=== PATIENT | male | born 1940 | race Caucasian/White ===

== ENCOUNTER 2019-06-30 07:41 | Emergency (ER) | payer MEDICARE, OTHER ==
[2019-06-30 08:03] VITALS: O2SAT 99
[2019-06-30] MEDS ORDERED: Augmentin 875-125 Tablet PO ONE (08:05)
[2019-06-30] MEDS ORDERED: Adacel Vial IM ONE ×2 (08:05→08:13)
[2019-06-30] MEDS ORDERED: Catapres 0.1 MG PO ONE (08:06)
--- NOTE | 2019-06-30 08:10 | ERPHSYRPT ---
- History of Present Illness Time Seen by Provider: 06/30/19 07:55 Source: patient Exam Limitations: no limitations Physician History: Patient bitten and clawed by his cat to his left hand one hour prior to coming into the emergency department while taking off his cat's collar. Patient can not recall his last tetanus shot. Patient's cat appears healthy, has been behaving normally and up to date on its vaccinations. Patient's cat can be observed. Occurred: just prior to arrival Method of Injury: other (cat bit him on the dorsum of the left hand, causing bruising and swelling) Quality: constant Severity of Pain-Max: moderate Severity of Pain-Current: mild Extremities Pain Location: hand: left Modifying Factors: Improves With: cold therapy (feels better) Associated Symptoms: No back pain, No chills, No chest discomfort, No chest pain , No dyspnea, No fever, No jaw pain, No nausea, No neck pain, No sweating, No short of breath, No vomiting Allergies/Adverse Reactions: No Known Drug Allergies Allergy (Unverified 09/07/15 08:37) Home Medications: Alendronate Sodium 70 mg [Fosamax 70 MG] 1 tab PO WEEKLY 08/23/14 [History ] Aspirin [Aspirin EC] 81 mg PO BID 08/23/14 [History] Calcium Carb & Citrate/Vit D3 [Calcium + Vitamin D3 Caplet] 1 tab PO BID [History] Isosorbide Mononitrate 30 mg [Imdur 30 MG] 15 mg PO DAILY 08/23/14 [History ] Lisinopril 5 mg [Zestril 5 MG] 10 mg PO DAILY 08/23/14 [History] Lovastatin 40 mg PO DAILY 08/23/14 [History] Albuterol Sulfate [Proair Hfa] 2 puff IH QID 09/07/15 [History] Fluticasone/Salmeterol 115/21 [Advair Hfa 115/21 Common canister*] 06/30/19 [ History] Fluticasone/Salmeterol 115/21* [Advair Hfa 115/21 Mcg Inhaler] 2 puff BID 10/06 [History] Hydrocodone/APAP 5-325 Tab^^^ [[place] 5-325 Tablet^^^] 06/30/19 [History] Tizanidine HCl 1 tab PO DAILY 06/30/19 [History] Triamcinolone 0.025% Cream [Triamcinolone Acetonide] 1 applic TOP BID 06/30/19 [ History] Hx Tetanus, Diphtheria Vaccination/Date Given: Yes (UNKNOWN) Hx Influenza Vaccination/Date Given: Yes Hx Pneumococcal Vaccination/Date Given: Yes (UP TO DATE) - Review of Systems Constitutional: No Fever, No Chills Eyes: No Eye Pain, No Photophobia, No Vision Changes Ears, Nose, & Throat: No Nose Congestion, No Mouth Swelling, No Throat Swelling , No Stridor Respiratory: No Cough, No Dyspnea Cardiac: No Chest Pain, No Edema, No Syncope Abdominal/Gastrointestinal: No Abdominal Pain, No Nausea, No Vomiting, No Diarrhea Genitourinary Symptoms: No Dysuria, No Flank Pain Musculoskeletal: No Back Pain, No Neck Pain Skin: No Rash Neurological: No Dizziness, No Focal Weakness, No Sensory Changes Psychological: No Symptoms Endocrine: No Symptoms Hematologic/Lymphatic: No Easy Bleeding, No Easy Bruising All Other Systems: Reviewed and Negative - Past Medical History Pertinent Past Medical History: Yes Neurological History: No Pertinent History ENT History: Other Cardiac History: Coronary Artery Disease, High Cholesterol, Hypertension, Myocardial Infarction ([place]) Respiratory History: COPD, Emphysema Endocrine Medical History: Diabetes Type II Musculoskeletal History: Arthritis GI Medical History: No Pertinent History History: Other Psycho-Social History: No Pertinent History Male Reproductive Disorders: Prostate Problems - Past Surgical History Past Surgical History: Yes Neuro Surgical History: No Pertinent History Cardiac: Cardiac Catheterization, Cardiac Stent Respiratory: No Pertinent History Gastrointestinal: Appendectomy Musculoskeletal: No Pertinent History Male Surgical History: Prostate Surgery Other Surgical History: BLADDER RECONSTRUCITON - Social History Smoking Status: Former smoker Exposure to second hand smoke: No Drug Use: none Patient Lives Alone: No - Nursing Vital Signs Nursing Vital Signs: Initial Vital Signs Temperature 97.3 F 06/30/19 07:47 Pulse Rate 83 06/30/19 07:47 Respiratory Rate 20 06/30/19 07:47 Blood Pressure 227/82 06/30/19 07:47 O2 Sat by Pulse Oximetry 99 06/30/19 07:47 Pain Scale Pain Intensity 5 - Physical Exam General Appearance: no apparent distress, alert Eyes, Ears, Nose, Throat Exam: moist mucous membranes Neck Exam: non-tender, supple Cardiovascular/Respiratory Exam: chest non-tender, normal breath sounds, regular rate/rhythm, no respiratory distress Abdominal Exam: non-tender, No guarding, No tenderness Back Exam: normal inspection, No CVA tenderness, No vertebral tenderness Shoulder Exam: normal inspection, non-tender, no evidence of injury, normal ROM Elbow/Forearm Exam: normal inspection, non-tender, no evidence of injury, normal ROM Wrist Exam: normal inspection, non-tender, no evidence of injury, normal ROM Hand Exam: normal ROM, abrasions (left hand and forearm), ecchymosis (dorsum of left hand), swelling (dorsum of left hand next to a 2mm puncture wound), No deformity Neuro/Tendon Exam: normal sensation, normal motor functions Mental Status Exam: alert, oriented x 3, cooperative Skin Exam: normal color, warm, dry - Radiology Exams Left Hand X-ray Interpretation: Reviewed by me, No Fracture, Other (positive dorsal soft tissue swelling) Ordered Tests: Active Orders 24 hr Category Date Time Status HAND (MINIMUM 3 VIEWS) Stat Exams 06/30/19 08:17 Completed Medication Summary Discontinued Medications Generic Name Dose Route Start Last Admin Trade Name Freq PRN Reason Stop Dose Admin Amoxicillin/Clavulanate Potassium 875 mg 06/30/19 08:05 06/30/19 08:16 Augmentin 875-125 Tablet PO 06/30/19 08:06 875 mg STAT ONE Administration Amoxicillin/Clavulanate Potassium Confirm 06/30/19 08:12 Augmentin 875-125 Tablet Administered 06/30/19 08:13 Dose 875 mg .ROUTE .STK-MED ONE Clonidine 0.1 mg 06/30/19 08:06 06/30/19 08:16 Catapres 0.1 Mg PO 06/30/19 08:07 0.1 mg STAT ONE Administration Clonidine Confirm 06/30/19 08:12 Catapres 0.1 Mg Administered 06/30/19 08:13 Dose 0.1 mg .ROUTE .STK-MED ONE Diphtheria/Tetanus/Acell Pertussis 0.5 ml 06/30/19 08:05 06/30/19 08:15 Adacel Vial IM 06/30/19 08:06 0.5 ml .ONCE ONE Administration Diphtheria/Tetanus/Acell Pertussis Confirm 06/30/19 08:13 Adacel Vial Administered 06/30/19 08:14 Dose 0.5 ml IM .STK-MED ONE - Progress Progress: unchanged (no loss of function of the left hand), improved (in regards to blood pressure) Progress Note: 06/30/19 09:19 Patient has no indication for inpatient admission at this time for IV antibiotics due to coming in shortly after the bite and antibiotic started. He' ll be continued on Augmentin for one week and patient's continue taking his blood pressure medications. His tetanus was boosted here in the emergency department and patient does not need any rabies interlobular or vaccine at this time as that appeared well, is up-to-date vaccination for patient's history, and can be observed for this upcoming week. Animal bite forms sent to the [facility] office per protocol. 06/30/19 09:21 Blood pressure improved after time and medication given. Counseled pt/family regarding: diagnosis, need for follow-up, rad results - Departure Departure Disposition: Home Clinical Impression: Open wound of left hand due to cat bite, Contusion of left hand, initial encounter Hypertension Qualifiers: Hypertension type: essential hypertension Qualified Code(s): I10 - Essential ( primary) hypertension Condition: Good Critical Care Time: No Referrals: TREVOR ESCOBAR MD [Primary Care Provider] - 07/01/19 Instructions: Animal Bites (DC), Diphtheria and Tetanus Toxoids, and Acellular Pertussis Vaccine, High Blood Pressure (DC) Additional Instructions: it is very important to followup with your physician on 07/01/2019 to check the response to therapy and make sure the cat bite has not worsened. Return immediately to the emergency department if any worsening swelling, loss of function to your left hand, worsening pain, any fever, new erythema, or reddish streaking up the arm occurs for immediate reevaluation in the emergency department. Prescriptions: Amoxicillin/Potassium Clav [Augmentin 875-125 Tablet] 1 each PO BID #14 tablet
[2019-06-30] MEDS ORDERED: Catapres 0.1 MG ONE (08:12)
[2019-06-30] MEDS ORDERED: Augmentin 875-125 Tablet ONE (08:12)
[2019-06-30 09:00] VITALS: BP 153/62; PULSE 75
--- NOTE | 2019-06-30 09:01 | XRAY ---
Indication: Swelling and bruising following cat bite. Comparison: None 3 views of the left hand demonstrates soft tissue swelling and subcutaneous emphysema overlying 4th/5th metacarpals presumed inflammatory/infectious. Elsewhere osteopenia, mild degenerative changes all IP joints, and bone cyst base 1st metacarpal. Remaining hand unremarkable.
== END 2019-06-30 09:32 | disposition home or self-care (01) ==
LOC: ED 07:41
DX: S61.452A Open bite of left hand, initial encounter (principal); W55.01XA Bitten by cat, initial encounter; I10 Essential (primary) hypertension
CPT/HCPCS: 73130; 90471; 90715; 99284; A9270-GY

== ENCOUNTER 2019-08-16 11:10 | Observation (INO) | payer MEDICARE, OTHER ==
[2019-08-16] MEDS ORDERED: FEVERALL 650 MG PR PRN (13:08)
[2019-08-16] MEDS ORDERED: NovoLOG Insulin SQ PRN (13:08)
[2019-08-16] MEDS ORDERED: Sodium Chloride 0.9% 1000 ML 1,000 ML IV STA (13:08)
[2019-08-16 13:29] LABS: BASOPHIL % 0.3 % (0.0-0.4); Basophil (Absolute #) 0.02 (0-0.4); Eosinophil % 2.8 % (0.00-5.0); Eosinophil (Absolute #) 0.19 (0-0.5); Hematocrit 47.1 % (42-50); Hemoglobin 16.1 gm/dl (12.5-18.0); Lymphocytes % 22.1 % (24.0-44.0); Mean Cell Volume 91.1 fl (78-100); Mean Corpuscular Hemoglobin 31.1 pg (26-32); Mean Corpuscular Hgb Concent. 34.2 g/dl (32-36); Mean Platelet Volume 11.1 fl (6-9.5); Monocyte (Absolute #) 0.67 (0.0-1.3); Monocytes % 9.9 % (0.0-12.0); Neutrophil % 64.9 % (36.0-66.0); Platelet Count 251 K/mm3 (150-450); Red Blood Count 5.17 M/mm3 (4.1-5.6); Red Cell Distribution Width 14.2 % (11.5-14.0); White Blood Count 6.8 K/mm3 (4.0-10.5)
[2019-08-16 13:54] LABS: ALBUMIN 4.1 g/dL (3.5-5.0); ALKALINE PHOSPHATASE 49 U/L (38-126); BLOOD UREA NITROGEN 24 mg/dL (9-20); CHLORIDE 105 mmol/L (98-107); Calcium 9.7 mg/dL (8.4-10.2); Carbon Dioxide 28 mmol/L (22-30); Creatinine 1 1.02 mg/dL (0.66-1.25); Glucose 122 mg/dL (74-106); NT PRO BNP 1100 pg/mL (0-1800); Potassium 4.9 mmol/L (3.5-5.1); SGOT/AST 26 U/L (17-59); SGPT/ALT 16 U/L (0-50); SODIUM 142 mmol/L (137-145); Total Protein 7.2 g/dL (6.3-8.2)
[2019-08-16] MEDS: ROCEPHIN 1 Gm-D5w 50 ml Bag** 1 G/50 ML IVPB IV SCH (13:58)
[2019-08-16] MEDS: Zithromax 500 MG/ 250 ML NaCl Premix 500 MG/250 ML IVPB IV SCH (13:59)
[2019-08-16] MEDS ORDERED: APAP PO SCH (14:00)
[2019-08-16] MEDS ORDERED: HYDROCODONE PO SCH (14:00)
--- NOTE | 2019-08-16 17:07 | XRAY ---
Indication: Weakness and weight loss. History of prostate tumor. Multiple contiguous axial images obtained through the chest without contrast as ordered. Comparison: None Lungs are hyperinflated with minimal scattered fibrosis/scarring, mild bilateral dependent atelectasis, right apical fibrosis/scarring, 1 cm left apical calcified granuloma, and 1.2 cm right posterior gutter noncalcified nodule. No infiltrate or effusion. Heart is not enlarged. Aorta is minimally arteriosclerotic without aneurysmal dilatation. Tiny right perihilar calcified nodes. No pathologic mediastinal lymphadenopathy. Distal esophagus demonstrates circumferential wall thickening, possible esophagitis. Bony thorax demonstrates age-related osteopenia and moderate degenerative changes of both shoulders. There are flowing osteophytes of the spine favoring diffuse idiopathic skeletal hyperostosis (also known as DISH). CT abdomen/pelvis reported separately. Impression: 1. Indeterminant 1.2 cm right posterior gutter noncalcified nodule. Size and location I believe precludes PET CT evaluation. Comparison studies would be of benefit if performed elsewhere. If not, recommend follow-up per Fleischner guidelines. 2. Mild scattered fibrosis/scarring and evidence for old granulomatous disease. 3. Distal esophageal circumferential wall thickening. Rule out esophagitis. 4. Osteopenia and DISH. CTDI 16.22
--- NOTE | 2019-08-16 17:13 | XRAY ---
Indication: Weakness and weight loss. History of prostate tumor. Multiple contiguous axial images obtained through the abdomen and pelvis using oral contrast only as ordered. Comparison: June 06, 2011. CT chest reported separately. Study degraded by respiration artifact throughout the exam. Contrasted stomach and bowel loops appear nonobstructed. There is mild diffuse scattered colonic fecal debris throughout including rectum. Mild sigmoid diverticulosis. Previous appendectomy and prostatectomy. No free fluid/air. Interval enlarging 3.3 cm left renal cyst. Stable splenic calcified granulomas. Remaining liver, gallbladder, pancreas, spleen, adrenal glands, kidneys, ureters, and bladder appear unremarkable for noncontrast exam. Minimal scattered aortoiliac calcifications without AAA. Osseous structures demonstrate age-related osteopenia and moderate/advanced degenerative changes throughout the lumbar spine. No suspicious bony lesions. Impression: 1. Respiration artifact. 2. Again mild diffuse fecal stasis without obstruction. 3. Incidental sigmoid diverticulosis, left renal cyst, and evidence for old granulomatous disease. 4. Osteopenia and multilevel degenerative spondylosis. CTDI 16.22
--- NOTE | 2019-08-16 17:19 | XRAY ---
Indication: Weakness and weight loss. Comparison: September 07, 2015. PA/lateral chest again hyperinflated with tiny left apical calcified granuloma. No focal infiltrate, consolidation, or large effusion. Heart is not enlarged. Bony thorax intact again with osteopenia, degenerative changes, and diffuse idiopathic skeletal hyperostosis. Impression: Nonacute hyperinflated chest with chronic features. See CT chest study of the same day.
[2019-08-16] MEDS: NORCO 5/325 MG PO SCH (17:36)
[2019-08-16] MEDS: Sodium Chloride 0.9% 1000 ML 1,000 ML IV SCH (17:36)
[2019-08-16] MEDS ORDERED: Advair Hfa 115/21 Common canister IH SCH (19:00)
[2019-08-16] MEDS: Lopressor 50 MG PO SCH (21:41)
[2019-08-16] MEDS: ECOTRIN 81 MG PO SCH (21:41)
[2019-08-16] MEDS: ZOCOR 20MG PO SCH (21:41)
[2019-08-16] MEDS ORDERED: NON-FORMULARY ITEM (Lovastatin [Lovastatin] 40 MG) PO SCH (22:00)
[2019-08-16 23:25] LABS: Appearance CLEAR (CLEAR); Bilirubin NEGATIVE (NEGATIVE); Blood NEGATIVE Ery/ul (0-5); Glucose NEGATIVE (NEGATIVE); Ketones NEGATIVE (NEGATIVE); Leukocyte Esterase NEGATIVE (NEGATIVE); Nitrite NEGATIVE (NEGATIVE); Protein,Urine Dip NEGATIVE (Negative); Urobilinogen NEGATIVE mg/dL (0-1)
[2019-08-17] MEDS: NORCO 5/325 MG PO SCH ×5 (00:50→23:26)
[2019-08-17] MEDS: Sodium Chloride 0.9% 1000 ML 1,000 ML IV SCH ×2 (03:51→16:49)
[2019-08-17] MEDS ORDERED: Fosamax 70 MG PO SCH (06:00)
[2019-08-17] MEDS: Calcium 500MG W/Vit D Tablet PO SCH (09:23)
[2019-08-17] MEDS: ROCEPHIN 1 Gm-D5w 50 ml Bag** 1 G/50 ML IVPB IV SCH (09:23)
[2019-08-17] MEDS: ECOTRIN 81 MG PO SCH ×2 (09:24→22:50)
[2019-08-17] MEDS: Imdur 30 MG PO SCH (09:24)
[2019-08-17] MEDS: Zestril 10 MG PO SCH (09:24)
[2019-08-17] MEDS: Zithromax 500 MG/ 250 ML NaCl Premix 500 MG/250 ML IVPB IV SCH (09:59)
[2019-08-17] MEDS ORDERED: VIT D3 PO SCH (10:00)
[2019-08-17] MEDS ORDERED: CITRATE PO SCH (10:00)
[2019-08-17] MEDS ORDERED: CALCIUM CARB PO SCH (10:00)
[2019-08-17] MEDS ORDERED: Zestril 5 MG PO SCH (10:00)
[2019-08-17] MEDS ORDERED: NON-FORMULARY ITEM (Fluticasone/Umeclidin/Vilanter [Trelegy Ellipta 100-62.5-25] 1 EACH) IH SCH (10:00)
[2019-08-17] MEDS: PATIENT OWN MEDICATION IH SCH ×2 (12:12→12:13)
--- NOTE | 2019-08-17 12:26 | PCM.NOTE ---
Date and Time: 08/17/19 1223 Subjective Assessment: doing ok - Review of Systems Constitutional: No Fever, No Chills Eyes: No Symptoms Ears, Nose, & Throat: No Symptoms Respiratory: No Cough, No Short Of Breath Cardiac: No Chest Pain, No Edema, No Syncope Abdominal/Gastrointestinal: No Abdominal Pain, No Nausea, No Vomiting, No Diarrhea Genitourinary Symptoms: No Dysuria Musculoskeletal: No Back Pain, No Neck Pain Skin: No Rash Neurological: No Dizziness, No Focal Weakness, No Sensory Changes Psychological: No Symptoms Endocrine: No Symptoms Hematologic/Lymphatic: No Symptoms Immunological/Allergic: No Symptoms Objective Exam General Appearance: no apparent distress, alert Neurologic Exam: alert, oriented x 3, cooperative, normal mood/affect, nml cerebellar function, sensation nml, No motor deficits Skin Exam: normal color, warm, dry Wound Assessment: Skin/Wound Assessment Wound/Incision Assessment Start: 08/16/19 12: 30 Text: Status: Active Freq: Q6H Protocol: Document 08/17/19 12:00 ESTEE (Rec: 08/17/19 12:20 ESTEE [id number]) Wound/Incision Assessment Left Wound Assessment Shift Assessment Wound Type SHINGLES Surrounding Tissue Purple Comment DRY AND HEALING, NO DRAINAGE NOTED Eye Exam: PERRL, EOMI, eyes nml inspection Ears, Nose, Throat Exam: normal ENT inspection, pharynx normal, moist mucous membranes Neck Exam: normal inspection, non-tender, supple, full range of motion Respiratory Exam: normal breath sounds, lungs clear, No respiratory distress Cardiovascular Exam: regular rate/rhythm, normal heart sounds Gastrointestinal/Abdomen Exam: soft, No tenderness, No mass Extremity Exam: normal inspection, normal range of motion Back Exam: normal inspection, normal range of motion, No CVA tenderness, No vertebral tenderness Male Genitalia Exam: deferred Rectal Exam: deferred OBJECTIVE DATA Vital Signs: Vital Signs - 24 hr Temp Pulse Resp BP Pulse Ox 08/17/19 12:00 97.7 F 76 18 115/55 97 08/17/19 08:51 67 16 97 08/17/19 07:00 97.6 F 58 L 17 166/72 98 08/17/19 03:00 97.9 F 72 18 160/70 98 08/16/19 23:20 98.2 F 75 75 H 172/70 97 08/16/19 19:50 76 20 98 10/29/19 19:00 97.9 F 74 20 160/72 98 08/16/19 15:21 98.6 F 74 18 195/80 94 L 08/16/19 13:42 98 Pain Assessment - Last Documented Pain Intensity 5 Pain Scale Used 0-10 Pain Scale Intake and Output: Intake & Output 08/15/19 08/16/19 08/17/19 08/18/19 11:59 11:59 11:59 11:59 Intake Total 3179 Output Total 3275 Balance -96 Weight 64.5 kg Lab Results: Accuchecks Accucheck Value: 101 Accucheck Value: 104 Accucheck Value: 120 Lab Results-Last 24 Hours 08/16/19 08/16/19 08/16/19 Range/Units 12:38 12:38 13:45 WBC 6.8 (4.0-10.5) K/mm3 RBC 5.17 (4.1-5.6) M/mm3 Hgb 16.1 (12.5-18.0) gm/dl Hct 47.1 (42-50) % MCV 91.1 (78-100) fl MCH 31.1 (26-32) pg MCHC 34.2 (32-36) g/dl RDW 14.2 H (11.5-14.0) % Plt Count 251 (150-450) K/mm3 MPV 11.1 H (6-9.5) fl Gran % 64.9 (36.0-66.0) % Eos # (Auto) 0.19 (0-0.5) Absolute Lymphs (auto) 1.50 (1.0-4.6) Absolute Monos (auto) 0.67 (0.0-1.3) Lymphocytes % 22.1 L (24.0-44.0) % Monocytes % 9.9 (0.0-12.0) % Eosinophils % 2.8 (0.00-5.0) % Basophils % 0.3 (0.0-0.4) % Absolute Granulocytes 4.40 (1.4-6.9) Basophils # 0.02 (0-0.4) Sodium 142 (137-145) mmol/L Potassium 4.9 (3.5-5.1) mmol/L Chloride 105 (98-107) mmol/L Carbon Dioxide 28 (22-30) mmol/L Anion Gap 14.0 (5-15) MEQ/L BUN 24 H (9-20) mg/dL Creatinine 1.02 (0.66-1.25) mg/dL Estimated GFR > 60.0 ML/MIN Glucose 122 H (74-106) mg/dL Hemoglobin A1c 5.23 (4.5-6.0) % Calcium 9.7 (8.4-10.2) mg/dL Total Bilirubin 0.50 (0.2-1.3) mg/dL AST 26 (17-59) U/L ALT 16 (0-50) U/L Alkaline Phosphatase 49 (38-126) U/L NT-Pro-B Natriuret Pep 1100 (0-1800) pg/mL Serum Total Protein 7.2 (6.3-8.2) g/dL Albumin 4.1 (3.5-5.0) g/dL Urine Color (YELLOW) Urine Appearance (CLEAR) Urine pH (5-6) Ur Specific [place] (1.005-1.025) Urine Protein (Negative) Urine Ketones (NEGATIVE) Urine Blood (0-5) Abilio/ul Urine Nitrite (NEGATIVE) Urine Bilirubin (NEGATIVE) Urine Urobilinogen (0-1) mg/dL Ur Leukocyte Esterase (NEGATIVE) Urine WBC (Auto) (0-5) /HPF Urine RBC (Auto) (0-2) /HPF U Epithel Cells (Auto) (FEW) /HPF Urine Bacteria (Auto) (NEGATIVE) /HPF Urine Culture Reflexed (NO) Urine Glucose (NEGATIVE) mg/dL 08/16/19 Range/Units 23:21 WBC (4.0-10.5) K/mm3 RBC (4.1-5.6) M/mm3 Hgb (12.5-18.0) gm/dl Hct (42-50) % MCV (78-100) fl MCH (26-32) pg MCHC (32-36) g/dl RDW (11.5-14.0) % Plt Count (150-450) K/mm3 MPV (6-9.5) fl Gran % (36.0-66.0) % Eos # (Auto) (0-0.5) Absolute Lymphs (auto) (1.0-4.6) Absolute Monos (auto) (0.0-1.3) Lymphocytes % (24.0-44.0) % Monocytes % (0.0-12.0) % Eosinophils % (0.00-5.0) % Basophils % (0.0-0.4) % Absolute Granulocytes (1.4-6.9) Basophils # (0-0.4) Sodium (137-145) mmol/L Potassium (3.5-5.1) mmol/L Chloride (98-107) mmol/L Carbon Dioxide (22-30) mmol/L Anion Gap (5-15) MEQ/L BUN (9-20) mg/dL Creatinine (0.66-1.25) mg/dL Estimated GFR ML/MIN Glucose (74-106) mg/dL Hemoglobin A1c (4.5-6.0) % Calcium (8.4-10.2) mg/dL Total Bilirubin (0.2-1.3) mg/dL AST (17-59) U/L ALT (0-50) U/L Alkaline Phosphatase (38-126) U/L NT-Pro-B Natriuret Pep (0-1800) pg/mL Serum Total Protein (6.3-8.2) g/dL Albumin (3.5-5.0) g/dL Urine Color STRAW (YELLOW) Urine Appearance CLEAR (CLEAR) Urine pH 8.0 (5-6) Ur Specific [place] 1.010 (1.005-1.025) Urine Protein NEGATIVE (Negative) Urine Ketones NEGATIVE (NEGATIVE) Urine Blood NEGATIVE (0-5) Abilio/ul Urine Nitrite NEGATIVE (NEGATIVE) Urine Bilirubin NEGATIVE (NEGATIVE) Urine Urobilinogen NEGATIVE (0-1) mg/dL Ur Leukocyte Esterase NEGATIVE (NEGATIVE) Urine WBC (Auto) NONE (0-5) /HPF Urine RBC (Auto) NONE (0-2) /HPF U Epithel Cells (Auto) NONE (FEW) /HPF Urine Bacteria (Auto) NONE (NEGATIVE) /HPF Urine Culture Reflexed NO (NO) Urine Glucose NEGATIVE (NEGATIVE) mg/dL Radiology Exams: Radiology Procedures Category Date Time Status ABDOMEN AND PELVIS W/0 CONTRAS [CT] Urgent Exams 08/16/19 13:30 Completed CHEST 2 VIEWS (PA AND LAT) Stat Exams 08/16/19 16:50 Completed CHEST WITHOUT CONTRAST [CT] Routine Exams 08/16/19 13:30 Completed Multi-Disciplinary Progress Notes: Multi-Disciplinary Progress Notes 08/17/19 12:13 Respiratory Note by Pan,Carlie Patient stated that his friend was bringing his Albuterol and Trelegy inhalers this morning. I spoke with patient this morning at 7:45 and he said that his friend would be bringing them in after 8:00. I asked him to let me know when they arrived and I would come down and give them. I had not heard from him so I checked back and as of 11:55, he has not brought them in. Offered patient to use our albuterol inhaler and he said he does not need at this time. Initialized on 08/17/19 12:13 - END OF NOTE 08/16/19 17:30 Physical Therapy Note by Mercy Bob P.Zan KIRK THIS PM AND PT. WAS IN RADIOLOGY FOR CT. WILL DALIA TOMORROW 08/17. 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
[2019-08-17] MEDS: Lopressor 50 MG PO SCH (22:50)
[2019-08-17] MEDS: ZOCOR 20MG PO SCH (22:50)
[2019-08-18] MEDS: Sodium Chloride 0.9% 1000 ML 1,000 ML IV SCH (02:31)
[2019-08-18] MEDS: NORCO 5/325 MG PO SCH ×2 (06:00→12:10)
[2019-08-18] MEDS: ROCEPHIN 1 Gm-D5w 50 ml Bag** 1 G/50 ML IVPB IV SCH (09:07)
[2019-08-18] MEDS: Imdur 30 MG PO SCH (09:09)
[2019-08-18] MEDS: Calcium 500MG W/Vit D Tablet PO SCH (09:09)
[2019-08-18] MEDS: ECOTRIN 81 MG PO SCH (09:10)
[2019-08-18] MEDS: Zestril 10 MG PO SCH (09:10)
[2019-08-18] MEDS: Zithromax 500 MG/ 250 ML NaCl Premix 500 MG/250 ML IVPB IV SCH (09:45)
[2019-08-18] MEDS: PATIENT OWN MEDICATION IH SCH ×2 (10:57)
[2019-08-18 11:01] VITALS: PULSE 65
[2019-08-18 12:04] VITALS: BP 158/67; O2SAT 99
--- NOTE | 2019-08-18 12:52 | PCM.DS ---
Discharge Summary Date of Admission: 08/16/19 11:12 Admitting Physician: TREVOR ESCOBAR Primary Care Provider: TREVOR ESCOBAR Allergies Allergies garlic Allergy (Verified 08/16/19 11:54) [facility] Hospital Summary - Hospital Course Hospital Course: Chief Complaint Diagnosis wt loss, dizziness, disoriented Allergies Allergy/AdvReac Type Severity Reaction Status Date / Time garlic Allergy Hives Verified 08/16/19 11:54 Vital Signs (Last 24 hours) Temp Pulse Resp BP Pulse Ox 08/18/19 12:00 98.3 F 65 18 158/67 99 08/18/19 10:59 65 20 98 08/18/19 07:11 97.9 F 66 18 140/65 98 08/18/19 04:00 97.8 F 94 H 20 166/65 97 08/17/19 23:28 98.5 F 69 14 180/75 98 08/17/19 20:18 88 20 94 L 08/17/19 20:04 98.0 F 75 20 194/76 98 08/17/19 16:00 97.5 F 77 18 148/64 98 Home Medications Medication Instructions Recorded Confirmed Last Taken Type Fluticasone/Umeclidin/Vilanter 1 each IH DAILY 08/16/19 08/16/19 Unknown History [Trelegy Ellipta 100-62.5-25] Metoprolol Tartrate 50 mg 50 mg PO QHS 08/16/19 08/16/19 Unknown History [Lopressor 50 MG] Current Medications Generic Name Dose Route Start Last Admin Trade Name Freq PRN Reason Stop Dose Admin Acetaminophen 650 mg 08/16/19 13:08 Feverall 650 Mg VT 09/15/19 13:07 Q4H PRN PRN PAIN AND/OR FEVER Hydrocodone Bitart/Acetaminophen 1 tab 08/16/19 18:00 08/18/19 12:10 Orr 5/325 Mg PO 08/21/19 17:59 1 tab Q6HT ALIX Administration Alendronate Sodium 70 mg 08/17/19 06:00 08/17/19 06:07 Fosamax 70 Mg PO 09/16/19 05:59 70 mg We@0600 ALIX Administration Aspirin 81 mg 08/16/19 22:00 08/18/19 09:10 Ecotrin 81 Mg PO 09/15/19 21:59 81 mg BID ALIX Administration Calcium Carbonate 1 tab 08/17/19 10:00 08/18/19 09:09 Calcium 500mg W/Vit D Tablet PO 09/16/19 09:59 1 tab DAILY ALIX Administration Azithromycin 500 mg in 250 mls @ 250 mls/hr 08/16/19 14:00 08/18/19 09:45 Zithromax 500 Mg/ 250 Ml Nacl Premix IV 09/15/19 13:59 250 mls/hr Q24H10 ALIX Administration Ceftriaxone Sodium/Dextrose 1 g in 50 mls @ 100 mls/hr 08/16/19 13:45 09:07 Rocephin 1 Gm-D5w 50 Ml Bag IV 09/15/19 13:44 100 mls/hr Q24H10 ALIX Administration Sodium Chloride 1,000 mls @ 100 mls/hr 08/16/19 13:15 08/18/19 02:31 Sodium Chloride 0.9% 1000 Ml IV 09/15/19 13:14 100 mls/hr .Q10H ALIX Administration Insulin Aspart 0 unit 08/16/19 13:08 Novolog Insulin SQ 09/15/19 13:07 UD PRN Accuchek Isosorbide Mononitrate 15 mg 08/17/19 10:00 08/18/19 09:09 Imdur 30 Mg PO 09/16/19 09:59 15 mg DAILY ALIX Administration Lisinopril 10 mg 08/17/19 10:00 08/18/19 09:10 Zestril 10 Mg PO 09/16/19 09:59 10 mg DAILY ALIX Administration Metoprolol Tartrate 50 mg 08/16/19 22:00 08/17/19 22:50 Lopressor 50 Mg PO 09/15/19 21:59 50 mg QHS ALIX Administration Patient Own Med ( 0 each 08/17/19 07:00 08/18/19 10:57 Trelegy) 09/16/19 06:59 Not Given 0700 ALIX Patient Own Med ( 0 each 08/17/19 07:00 08/18/19 10:57 Albuterol) 09/16/19 06:59 Not Given BIDRT ALIX Simvastatin 20 mg 08/16/19 22:00 08/17/19 22:50 Zocor 20mg PO 09/15/19 21:59 20 mg HS ALIX Administration Discontinued Medications Generic Name Dose Route Start Last Admin Trade Name Junior PRN Reason Stop Dose Admin Sodium Chloride 1,000 mls @ 999 mls/hr 08/16/19 13:08 08/16/19 14:38 Sodium Chloride 0.9% 1000 Ml IV 08/16/19 14:08 999 mls/hr .Q1H1M STA Administration Fluticasone/Salmeterol 2 puff 08/16/19 19:00 Advair Hfa 115/21 Common Canister* IH 09/15/19 18:59 BIDRT ALIX Intake & Output (Last 24 hours) 08/16/19 08/17/19 08/18/19 08/19/19 11:59 11:59 11:59 11:59 Intake Total 3179 3762 Output Total 3275 3700 Balance -96 62 Weight 64.5 kg Microbiology Results (Last 24 hours) 08/16/19 13:40 Blood Blood Culture Gram Stain - Pending 08/16/19 13:40 Blood Blood Culture - Preliminary NO GROWTH TO DATE 08/16/19 13:40 Blood Blood Culture Gram Stain - Pending 08/16/19 13:40 Blood Blood Culture - Preliminary NO GROWTH TO DATE Orders (Last 24 hours) Category Date Time Status Ambulate Patient TID Care 08/17/19 13:42 Active Patient Care Notes (Last 24 hours) 08/17/19 13:43 Nursing Note by Mercy Vazquez VERBAL ORDER TO AMBULATE PATIENT. Initialized on 08/17/19 13:43 - END OF NOTE - Vitals & Intake/Output Vital Signs: Vital Signs Temperature 98.3 F 08/18/19 12:00 Pulse Rate 65 08/18/19 12:00 Respiratory Rate 18 08/18/19 12:00 Blood Pressure 158/67 08/18/19 12:00 O2 Sat by Pulse Oximetry 99 08/18/19 12:00 Intake & Output: Intake & Output 08/16/19 08/17/19 08/18/19 08/19/19 11:59 11:59 11:59 11:59 Intake Total 3179 3762 Output Total 3275 3700 Balance -96 62 Weight 64.5 kg - Lab Result Diagrams: 08/16/19 12:38 08/16/19 12:38 Lab Results-Last 24 Hrs: Accuchecks Accucheck Value: 106 Accucheck Value: 117 Accucheck Value: 88 Micro Results-Entire Visit: Microbiology 08/16/19 13:40 Blood Culture - Preliminary Blood NO GROWTH TO DATE 08/16/19 13:40 Blood Culture - Preliminary Blood NO GROWTH TO DATE Accuchecks Accucheck Value: 106 Accucheck Value: 117 Accucheck Value: 88 - Radiology Exams Ordered Rad Exams-Entire Visit: Radiology Procedures Category Date Time Status ABDOMEN AND PELVIS W/0 CONTRAS [CT] Urgent Exams 08/16/19 13:30 Completed CHEST 2 VIEWS (PA AND LAT) Stat Exams 08/16/19 16:50 Completed CHEST WITHOUT CONTRAST [CT] Routine Exams 08/16/19 13:30 Completed - Procedures and Test Procedures and Tests throughout Hospitalization: Therapy Orders & Screens 08/16/19 13:08 OT Eval and Treat (MD Order) ROUTINE Comment: Consulting Provider: Physician Instructions: Reason For Exam: Diagnosis: wt loss, dizziness, disoriented EKG STAT Comment: Diagnosis: wt loss, dizziness, disoriented Oxygen Nasal Cannula 2 lpm Comment: Diagnosis: wt loss, dizziness, disoriented Respiratory Therapy Consult ROUTINE Comment: Reason For Exam: Diagnosis: wt loss, dizziness, disoriented 08/16/19 13:13 PT Eval & Treat (MD Order) ROUTINE Reason for Eval:: debility Diagnosis: wt loss, dizziness, disoriented 08/16/19 19:00 Respiratory Therapy Assessment DAILY Comment: Diagnosis: wt loss, dizziness, disoriented 08/17/19 08:12 EKG ROUTINE Comment: Diagnosis: wt loss, dizziness, disoriented Discharge Exam General Appearance: no apparent distress, alert Neurologic Exam: alert, oriented x 3, cooperative, normal mood/affect, nml cerebellar function, sensation nml, No motor deficits Eye Exam: PERRL, EOMI, eyes nml inspection Ears, Nose, Throat Exam: normal ENT inspection, pharynx normal, moist mucous membranes Neck Exam: normal inspection, non-tender, supple, full range of motion Respiratory Exam: normal breath sounds, lungs clear, No respiratory distress Cardiovascular Exam: regular rate/rhythm, normal heart sounds Gastrointestinal/Abdomen Exam: soft, No tenderness, No mass Male Genitalia Exam: deferred Rectal Exam: deferred Back Exam: normal inspection, normal range of motion, No CVA tenderness, No vertebral tenderness Extremity Exam: normal inspection, normal range of motion Skin Exam: normal color, warm, dry Wound Assessment: Skin/Wound Assessment Wound/Incision Assessment Start: 08/16/19 12: 30 Text: Status: Active Freq: Q6H Protocol: Document 08/18/19 06:00 MG (Rec: 08/18/19 07:00 MG [id number]) Wound/Incision Assessment Left Wound Assessment Shift Assessment Wound Type SHINGLES Surrounding Tissue Purple Comment DRY AND HEALING, NO DRAINAGE NOTED. 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 Current Visit: Yes Status: Acute Code(s): I13.10 - HYP HRT & CHR KDNY DIS W/ O HRT FAIL, W STG 1-4/UNSP CHR KDNY; N18.2 - CHRONIC KIDNEY DISEASE, STAGE 2 ( MILD) (2) Weight loss Current Visit: Yes Status: Chronic (3) Type 2 diabetes mellitus Current Visit: Yes Status: Acute (4) COPD (chronic obstructive pulmonary disease) Current Visit: Yes Status: Chronic - Discharge Discharge Date: 08/18/19 Disposition: Home, Self-Care Condition: Stable Prescriptions: Continue Lovastatin 40 mg PO QHS Aspirin [Aspirin EC] 81 mg PO BID Lisinopril 5 mg [Zestril 5 MG] 10 mg PO DAILY Isosorbide Mononitrate 30 mg [Imdur 30 MG] 15 mg PO DAILY Calcium Carb & Citrate/Vit D3 [Calcium + Vitamin D3 Caplet] 1 tab PO DAILY Alendronate Sodium 70 mg [Fosamax 70 MG] 1 tab PO WEEKLY Hydrocodone/APAP 5-325 Tab^^^ [Orr 5-325 Tablet^^^] 1 each PO Q6H Metoprolol Tartrate 50 mg [Lopressor 50 MG] 50 mg PO QHS Fluticasone/Umeclidin/Vilanter [Trelegy Ellipta 100-62.5-25] 1 each IH DAILY Follow up with: TREVOR ESCOBAR MD [Primary Care Provider] - 1 Week
== END 2019-08-18 16:15 | disposition home or self-care (01) ==
LOC: MED SURG 11:12
PROVIDERS: ADMIT General Practice; ATTEND General Practice
DX: I12.9 Hypertensive chronic kidney disease with stage 1 through stage 4 chronic kidney disease, or unspecified chronic kidney disease (principal); E11.22 Type 2 diabetes mellitus with diabetic chronic kidney disease; N18.2 Chronic kidney disease, stage 2 (mild); R63.4 Abnormal weight loss; J44.9 Chronic obstructive pulmonary disease, unspecified; I25.10 Atherosclerotic heart disease of native coronary artery without angina pectoris; K57.92 Diverticulitis of intestine, part unspecified, without perforation or abscess without bleeding; B02.29 Other postherpetic nervous system involvement; Z79.899 Other long term (current) drug therapy
CPT/HCPCS: 36415; 71046; 71250; 74176; 80053; 81001; 82962; 83036; 83880; 85025; 87040; 93005; 93268; 94760; J0456; J0696; 97110-GP; A9270-GY; G0378